=== PATIENT | male | born 1990 | race Two or more races ===

== ENCOUNTER 2024-02-25 13:14 | Emergency (ER) | payer MEDICAID ==
[~2024-02-25] VITALS: Ht 175.3 cm; Wt 75.0 kg
[2024-02-25 16:24] LABS: APPEARANCE,URINE CLEAR (CLEAR); BILIRUBIN,URINE NEGATIVE (NEGATIVE); COLOR,URINE YELLOW (YELLOW); GLUCOSE, URINE (UA) NEGATIVE (NEGATIVE); KETONES,URINE NEGATIVE (NEGATIVE); LEUKOCYTE ESTERASE ,URINE NEGATIVE (NEGATIVE); NITRATE,URINE NEGATIVE (NEGATIVE); OCCULT BLOOD,URINE NEGATIVE (NEGATIVE); PH,URINE 5.5 (5.0-8.0); PROTEIN,URINE TRACE mg/dL (NEGATIVE); SPECIFIC GRAVITIY, URINE 1.028 (1.003-1.030); UROBILINOGEN,URINE <=1.0 mg/dL (<=1.0)
[2024-02-25 16:30] LABS: BACTERIA,URINE None Seen /HPF (None Seen); RBC,URINE None Seen /HPF (0-2); WBC,URINE None Seen /HPF (0-5)
[2024-02-25 16:51] LABS: COVID AG,FIA SOURCE NASAL SWAB
[2024-02-25 17:15] LABS: SARS-COV2 (COVID) ANTIGEN,FIA Negative (Negative)
[2024-02-25 17:16] LABS: INFLUENZA TYPE A NEGATIVE FOR TYPE A (NEGATIVE); INFLUENZA TYPE B NEGATIVE FOR TYPE B (NEGATIVE)
[2024-02-25 17:42] VITALS: BP 128/78; PULSE 78; RESP 18; TEMP 98; O2SAT 100
== END 2024-02-25 17:58 | disposition home or self-care (01) ==
LOC: EMS 13:14
DX: R50.9 Fever, unspecified (principal); R22.0 Localized swelling, mass and lump, head; E86.0 Dehydration; F41.9 Anxiety disorder, unspecified; Z20.822 Contact with and (suspected) exposure to COVID-19
CPT/HCPCS: 81001; 87491; 87591; 87804; 99283